=== PATIENT | male | born 1975 | race Caucasian/White ===

== ENCOUNTER 2017-06-02 23:02 | Emergency (ER) | payer SELFPAY ==
[2017-06-02] MEDS ORDERED: Lidocaine 1% 20 ML MDV INJECT ONE (23:29)
--- NOTE | 2017-06-02 23:52 | EDM.PDOC ---
ED HPI GENERAL MEDICAL PROBLEM - General Chief Complaint: Laceration Stated Complaint: PT HURT NOSE Time Seen by Provider: 06/02/17 23:48 Source of Information: Reports: Patient - History of Present Illness INITIAL COMMENTS - FREE TEXT/NARRATIVE: HISTORY AND PHYSICAL: History of present illness: [Patient presents with pain over his nasal bridge after being struck in the nose with a sheet of a luminal metal, did cause laceration 2.5 cm with pretty good wound approximation was a very knifelike that the wound does have slight gape however no loss of consciousness no fever nausea vomiting chills sweats no epistaxis ] Review of systems: As per history of present illness and below otherwise all systems reviewed and negative. Past medical history: As per history of present illness and as reviewed below otherwise noncontributory. Surgical history: As per history of present illness and as reviewed below otherwise noncontributory. Social history: No reported history of drug or alcohol abuse. Family history: As per history of present illness and as reviewed below otherwise noncontributory. Physical exam: HEENT: Atraumatic, normocephalic, pupils reactive, negative for conjunctival pallor or scleral icterus, mucous membranes moist, throat clear, neck supple, nontender, trachea midline. Lungs: Clear to auscultation, breath sounds equal bilaterally, chest nontender. Heart: S1S2, regular, negative for clicks, rubs, or JVD. Abdomen: Soft, nondistended, nontender. Negative for masses or hepatosplenomegaly. Negative for costovertebral tenderness. Pelvis: Stable nontender. Genitourinary: Deferred. Rectal: Deferred. Extremities: Atraumatic, negative for cords or calf pain. Neurovascular unremarkable. Neuro: Awake, alert, oriented. Cranial nerves II through XII unremarkable. Cerebellum unremarkable. Motor and sensory unremarkable throughout. Exam nonfocal. Skin as per history of present illness otherwise unremarkable Diagnostics: [ ] Clinical Therapeutics: [Tetanus status is up-to-date within the last 2 years per patient ] Keflex 500 by mouth twice a day #20 no refill Wound cleansed and explored no foreign material Lidocaine 1% no appendectomy--1 mL #3 5-0 Prolene sutures interrupted Sutures out 5 days Standard wound care instructions Impression: [ 2.5 cm linear laceration --nasal bridge] Definitive disposition and diagnosis as appropriate pending reevaluation and review of above. Nasal bridge Pain Score (Numeric/FACES): 1 - Related Data Allergies Allergy/AdvReac Type Severity Reaction Status Date / Time No Known Allergies Allergy Verified 06/02/17 23:06 Home Meds: Home Meds Venlafaxine [Effexor] 70 mg PO DAILY 06/02/17 [History] Past Medical History Psychiatric History: Reports: Anxiety Social & Family History - Family History Family Medical History: Noncontributory - Tobacco Use Smoking Status *Q: Never Smoker - Recreational Drug Use Recreational Drug Use: No ED ROS GENERAL - Review of Systems Review Of Systems: ROS reveals no pertinent complaints other than HPI. ED EXAM, SKIN/RASH Exam: See Below Course - Vital Signs Last Recorded V/S: Last Vital Signs Temp 97.3 F 06/02/17 23:03 Pulse 89 06/02/17 23:03 Resp 18 06/02/17 23:03 BP 142/83 H 06/02/17 23:03 Pulse Ox 94 L 06/02/17 23:03 - Orders/Labs/Meds Meds: Medications Discontinued Medications Generic Name Dose Route Start Last Admin Trade Name Cristel PRN Reason Stop Dose Admin Lidocaine HCl 20 ml 06/02/17 23:29 06/02/17 23:38 Xylocaine 1% INJECT 06/02/17 23:30 20 ml ONETIME ONE Administration Departure - Departure Time of Disposition: 23:50 Disposition: Home, Self-Care 01 Condition: Good Clinical Impression: Laceration - Discharge Information Referrals: PCP,None [Primary Care Provider] - Additional Instructions: Keep wound clean and dry 48 hours Standard wound care instructions Sutures out 5 days Return if redness warmth or pus drainage despite antibiotics Medication as prescribed The following information is given to patients seen in the emergency department who are being discharged to home. This information is to outline your options for follow-up care. We provide all patients seen in our emergency department with a follow-up referral. The need for follow-up, as well as the timing and circumstances, are variable depending upon the specifics of your emergency department visit. If you don't have a primary care physician on staff, we will provide you with a referral. We always advise you to contact your personal physician following an emergency department visit to inform them of the circumstance of the visit and for follow-up with them and/or the need for any referrals to a consulting specialist. The emergency department will also refer you to a specialist when appropriate. This referral assures that you have the opportunity for follow-up care with a specialist. All of these measure are taken in an effort to provide you with optimal care, which includes your follow-up. Under all circumstances we always encourage you to contact your private physician who remains a resource for coordinating your care. When calling for follow-up care, please make the office aware that this follow-up is from your recent emergency room visit. If for any reason you are refused follow-up, please contact the [facility] emergency department at and asked to speak to the emergency department charge nurse.
== END 2017-06-03 | disposition home or self-care (01) ==
LOC: MW.ED 23:02
DX: S01.21XA Laceration without foreign body of nose, initial encounter (principal); Z79.899 Other long term (current) drug therapy; W22.8XXA Striking against or struck by other objects, initial encounter
CPT/HCPCS: 99282